=== PATIENT | male | born 1935 | race Caucasian/White ===

== ENCOUNTER 2016-05-02 01:21 | Inpatient (IN) | payer OTHER ==
[2016-05-02] VITALS (21 sets, daily range): BP systolic 98–183; BP diastolic 56–142
[~2016-05-02] VITALS: Ht 170.2 cm; Wt 89.8 kg
[~2016-05-02 01:21] MED LIST: ASPIRIN EC325 MG PO; ATORVASTATIN CA40 MG PO; DITROPAN5 MG PO; ENALAPRILA IV; FUROSEMIDE40 MG PO; LISINOPRIL10 MG PO; LISINOPRIL20 MG PO; LOPRESSOR25 MG PO; MYSOLINE50 MG PO; NEXIUM40 MG PO; NUEDEXTA 20-101 EACH PO; OXYBUTYNIN CHLO10 MG PO; PROTONIX40 MG PO; TYLENOL REGULA325 MG PO
[2016-05-02 02:00] LABS: HEMATOCRIT 30.7 % (38.0-50.0); MCH 27.1 PG (29.0-34.0); MCHC 33.6 G/DL (30.0-36.0); MCV 80.8 FL (86-99); MEAN PLAT.VOLUME 9.9 uM^3 (9.0-12.4); PLATELET COUNT 302 K/uL (156-360); RBC DIS.WIDTH-CV 15.2 % (11.8-14.6); RBC DIS.WIDTH-SD 42.9 % (39-53); WHITE BLOOD COUNT 16.1 K/uL (4.1-10.2)
[2016-05-02 02:03] LABS: BASE EXCESS 3.4 mEq/L (-3 to +3); BICARBONATE 26.7 mEq/L (22-26); CARBOXY HGB 1.9 % (0-5); METHEMOGLOBIN 1.2 % (0-1.5); PCO2 35 mm Hg (35-45); PO2 59 mm Hg (80-100); pH 7.49 (7.35-7.45)
[2016-05-02 02:04] LABS: COMMENTS - BLOOD GASES C+A+; DEVICE NEB TX; O2 FLOW 7 L/MIN; SITE RR; TOTAL RESP RATE 25 resp/min
[2016-05-02 02:11] LABS: CHLORIDE 99 mEq/L (99-109); POTASSIUM 3.5 mEq/L (3.7-5.4); SODIUM 135 mEq/L (136-147)
[2016-05-02 02:13] LABS: GLUCOSE 179 mg/dL (70-99)
[2016-05-02 02:14] LABS: ANION GAP 15 MEQ/L (2-14)
[2016-05-02 02:17] LABS: GFR ESTIMATE (CALCULATED) > 59 mL/min/
[2016-05-02 02:18] LABS: UREA NITROGEN (BUN) 31 mg/dL (9-23)
[2016-05-02 02:19] LABS: INFLUENZA A VIRAL ANTIGEN NEGATIVE; INFLUENZA B VIRAL ANTIGEN NEGATIVE
[2016-05-02 02:21] LABS: TROP-I INTERPRETATION POSITIVE
[2016-05-02 02:22] LABS: TROPONIN-I 1.89 ng/mL (0.0-0.30)
[2016-05-02 02:47] LABS: INTER. NORMALIZED RATIO 1.2; PROTHROMBIN TIME 12.7 (9.2-11.2); PTT 29.6 (25-32)
[2016-05-02 07:50] LABS: METH RESISTANT S AUREUS PCR NEGATIVE (NEGATIVE); PROBE CHECK PASS; SPECIMEN PROCESSING CONTROL PASS
[2016-05-02 11:16] LABS: TROP-I INTERPRETATION POSITIVE
[2016-05-02 11:42] LABS: CK-MB 5.8 ng/mL (0.0-4.9)
[2016-05-02 11:57] LABS: CREATINE KINASE 135 IU/L (1-294); TOTAL CK 135 IU/L (1-294)
[2016-05-02 13:42] LABS: MAGNESIUM 2.2 mg/dl (1.3-2.7)
[2016-05-02 21:21] LABS: TROP-I INTERPRETATION POSITIVE
[2016-05-02 21:25] LABS: TROPONIN-I 2.38 ng/mL (0.0-0.30)
[2016-05-03] VITALS (12 sets, daily range): BP systolic 131–176; BP diastolic 69–118
[2016-05-03 05:41] LABS: ANION GAP 10 MEQ/L (2-14); CHLORIDE 99 MEQ/L (99-109); GFR ESTIMATE (CALCULATED) > 59 mL/min/; MAGNESIUM 2.1 mg/dl (1.3-2.7); POTASSIUM 3.4 MEQ/L (3.7-5.4); SAMPLE HEMOLYSIS CHECK 0; SAMPLE ICTERIC CHECK 0; SAMPLE LIPEMIA CHECK 0; SODIUM 136 MEQ/L (136-147); UREA NITROGEN (BUN) 19 mg/dL (9-23)
[2016-05-03 05:42] LABS: GLUCOSE 112 mg/dL (70-99)
[2016-05-03 10:30] LABS: C DIFF TOXIN NEGATIVE (NEGATIVE)
[2016-05-03 10:49] LABS: PROBE CHECK PASS; SPECIMEN PROCESSING CONTROL PASS
[2016-05-03 11:08] LABS: CREATINE KINASE 125 IU/L (1-294); TOTAL CK 125 IU/L (1-294)
[2016-05-03 11:15] LABS: CK-MB 1.9 ng/mL (0.0-4.9)
[2016-05-03 11:17] LABS: TROP-I INTERPRETATION POSITIVE
[2016-05-03 11:22] LABS: TROPONIN-I 1.71 ng/mL (0.0-0.30)
== END 2016-05-03 15:20 | disposition short-term general hospital (02) | DRG 270 ==
LOC: EME → EDBD 01:21 → EME 01:21 → EDOF 04:23 → 4WEST 04:23
PROVIDERS: Emergency Medicine; Internal Medicine Critical Care Medicine; Surgery
PROC: 5A09457 Assistance with Respiratory Ventilation, 24-96 Consecutive Hours, Continuous Positive Airway Pressure (ICD-10-PCS; 2016-05-02)
PROC: 5A02210 Assistance with Cardiac Output using Balloon Pump, Continuous (ICD-10-PCS; principal; 2016-05-03)
DX: I21.4 Non-ST elevation (NSTEMI) myocardial infarction (principal); J96.01 Acute respiratory failure with hypoxia; I11.0 Hypertensive heart disease with heart failure; I50.9 Heart failure, unspecified; I25.10 Atherosclerotic heart disease of native coronary artery without angina pectoris; I34.0 Nonrheumatic mitral (valve) insufficiency; E87.6 Hypokalemia; E87.1 Hypo-osmolality and hyponatremia; Z91.19 Patient's noncompliance with other medical treatment and regimen; R19.7 Diarrhea, unspecified; D64.9 Anemia, unspecified; D69.6 Thrombocytopenia, unspecified; K21.9 Gastro-esophageal reflux disease without esophagitis; E11.65 Type 2 diabetes mellitus with hyperglycemia; E78.00 Pure hypercholesterolemia, unspecified; F32.9 Major depressive disorder, single episode, unspecified; E78.5 Hyperlipidemia, unspecified; I25.2 Old myocardial infarction; Z86.73 Personal history of transient ischemic attack (TIA), and cerebral infarction without residual deficits; Z87.891 Personal history of nicotine dependence
CPT/HCPCS: 36600; 71010; 80048; 82550; 82550 91; 82553; 82803; 83605; 83735; 83874 90; 83880; 84100; 84484; 85027; 85610; 85730; 87040; 87493; 87502; 87641; 93005; 93306; 94002; 94003; 94640; 94640 76; 94799; 99281; 99285; C1769; C1894; J0456; J0692; J1940; J7050; J7644

== ENCOUNTER 2016-12-11 00:08 | Observation (INO) | payer OTHER ==
[~2016-12-11] VITALS: Ht 170.2 cm; Wt 84.6 kg
[2016-12-11 00:34] LABS: HEMATOCRIT 33.2 % (38.0-50.0); MCH 26.6 PG (29.0-34.0); MCHC 32.2 G/DL (30.0-36.0); MCV 82.6 FL (86-99); MEAN PLAT.VOLUME 10.1 uM^3 (9.0-12.4); PLATELET COUNT 306 K/uL (156-360); RBC DIS.WIDTH-CV 15.1 % (11.8-14.6); RBC DIS.WIDTH-SD 45.2 % (39-53); RED BLOOD COUNT 4.02 M/uL (4.00-5.50); WHITE BLOOD COUNT 10.6 K/uL (4.1-10.2)
[2016-12-11 00:43] LABS: CHLORIDE 107 mEq/L (99-109); POTASSIUM 3.7 mEq/L (3.7-5.4); SODIUM 142 mEq/L (136-147)
[2016-12-11 00:45] LABS: GLUCOSE 162 mg/dL (70-99)
[2016-12-11 00:46] LABS: ANION GAP 11 MEQ/L (2-14)
[2016-12-11 00:47] LABS: CARBON DIOXIDE (BICARBONATE) 26.8 MEQ/L (20-31)
[2016-12-11 00:49] LABS: GFR ESTIMATE (CALCULATED) > 59 mL/min/
[2016-12-11 00:50] LABS: UREA NITROGEN (BUN) 19 mg/dL (9-23)
[2016-12-11 00:57] LABS: TROP-I INTERPRETATION NEGATIVE; TROPONIN-I 0.08 ng/mL (0.0-0.30)
[2016-12-11] MEDS ORDERED: PROTONIX40 MG PO (01:32)
[2016-12-11] MEDS ORDERED: LISINOPRIL10 MG PO (01:32)
[2016-12-11] MEDS ORDERED: ASPIR 8181 M1 PO (01:32)
[2016-12-11] MEDS ORDERED: PLAVIX75 MG PO (01:33)
[2016-12-11] MEDS ORDERED: TOPROL XL50 MG PO (01:33)
[2016-12-11] MEDS ORDERED: FUROSEMIDE40 MG PO (01:33)
[2016-12-11] MEDS ORDERED: CRESTOR40 MG PO (01:33)
[2016-12-11 07:56] LABS: TROP-I INTERPRETATION NEGATIVE; TROPONIN-I 0.25 ng/mL (0.0-0.30)
[2016-12-11 12:50] VITALS: BP 148/90
[2016-12-11 13:41] LABS: TROP-I INTERPRETATION NEGATIVE; TROPONIN-I 0.26 ng/mL (0.0-0.30)
[2016-12-11 14:50] VITALS: BP 148/90
[2016-12-11 15:39] LABS: ADD MIUA? NO; BILIRUBIN NEGATIVE; BLOOD NEGATIVE; COLOR STRAW ((YELLOW)); GLUCOSE (STRIP) NEGATIVE; KETONES NEGATIVE; LEUKOCYTES NEGATIVE; NITRITE NEGATIVE; PROTEIN (STRIP) NEGATIVE; SPECIFIC GRAVITY 1.008 (1.000-1.030); UCUL ADDED? NO; UROBILINOGEN 0.2 MG/DL (0.2-1.0)
[2016-12-11 17:37] VITALS: BP 143/86
[2016-12-11 19:00] VITALS: BP 144/63
[2016-12-12 00:15] VITALS: BP 111/56
[2016-12-12 04:20] VITALS: BP 174/84
[2016-12-12 08:15] VITALS: BP 168/86
[2016-12-12 12:29] VITALS: BP 144/90
[2016-12-12] MEDS ORDERED: LISINOPRIL20 MG PO (12:51)
== END 2016-12-12 14:22 | disposition home or self-care (01) ==
LOC: EME → EDBD 00:08 → EDOF 03:41 → 4EAST 03:41 → ENRESERV 03:44 → CANRESERV 06:38 → ENRESERV 07:51 → 4EAST 12:07 → ENPENDDIS 12-12 → 4EAST 12-12 12:49
PROVIDERS: Emergency Medicine; Hospitalist; Internal Medicine
DX: I11.0 Hypertensive heart disease with heart failure (principal); I50.23 Acute on chronic systolic (congestive) heart failure; D50.9 Iron deficiency anemia, unspecified; I25.10 Atherosclerotic heart disease of native coronary artery without angina pectoris; Z86.73 Personal history of transient ischemic attack (TIA), and cerebral infarction without residual deficits; Z95.1 Presence of aortocoronary bypass graft; I70.0 Atherosclerosis of aorta; I34.0 Nonrheumatic mitral (valve) insufficiency; E78.5 Hyperlipidemia, unspecified; Z79.82 Long term (current) use of aspirin; R09.89 Other specified symptoms and signs involving the circulatory and respiratory systems; Z87.891 Personal history of nicotine dependence; I35.0 Nonrheumatic aortic (valve) stenosis; Z91.19 Patient's noncompliance with other medical treatment and regimen; Z91.14 Patient's other noncompliance with medication regimen
CPT/HCPCS: 71010; 80048; 80053; 81003; 82803; 83605; 83880; 84484; 85025; 85027; 87040; 93005; 94002; 94799; 99202; 99281; 99285; G0378; J1644; J1940

== ENCOUNTER 2017-03-24 22:32 | Inpatient (IN) | payer OTHER ==
[~2017-03-24] VITALS: Ht 170.2 cm; Wt 98.2 kg
[~2017-03-24 22:32] MED LIST changes: +ASPIR 8181 M1 PO; +CRESTOR40 MG PO; +PLAVIX75 MG PO; +TOPROL XL50 MG PO
[2017-03-24 23:11] LABS: BASOPHIL COUNT 0.1 K/uL (0-0.1); EOSINOPHIL (%) 0.5 % (0-5); EOSINOPHIL COUNT 0.1 K/uL (0-0.3); HEMATOCRIT 37.3 % (38.0-50.0); IMMATURE GRANULOCYTE (%) 0.2 % (0.0-0.7); INSTRUMENT ABS NEUTROPHIL CT 7.8 K/uL; LYMPHOCYTE COUNT 0.9 K/uL (1.0-2.8); MCH 26.9 PG (29.0-34.0); MCHC 32.4 G/DL (30.0-36.0); MCV 83.1 FL (86-99); MEAN PLAT.VOLUME 10.3 uM^3 (9.0-12.4); MONOCYTE COUNT 0.7 K/uL (0-0.8); NEUTROPHIL (%) 82.6 % (45-76); NEUTROPHIL COUNT 7.8 K/uL (1.8-6.4); PLATELET COUNT 230 K/uL (156-360); RBC DIS.WIDTH-CV 15.7 % (11.8-14.6); RBC DIS.WIDTH-SD 47.5 % (39-53); RED BLOOD COUNT 4.49 M/uL (4.00-5.50); WHITE BLOOD COUNT 9.5 K/uL (4.1-10.2)
[2017-03-24 23:17] LABS: INTER. NORMALIZED RATIO 1.2; PROTHROMBIN TIME 13.1 SEC (10.2-12.9)
[2017-03-24 23:19] LABS: CHLORIDE 102 mEq/L (99-109); PTT 32.3 SEC (25-37)
[2017-03-24 23:20] LABS: POTASSIUM 4.3 mEq/L (3.7-5.4); SODIUM 137 mEq/L (136-147)
[2017-03-24 23:21] LABS: GLUCOSE 118 mg/dL (70-99)
[2017-03-24 23:23] LABS: ANION GAP 13 MEQ/L (2-14)
[2017-03-24 23:25] LABS: GFR ESTIMATE (CALCULATED) 48 mL/min/
[2017-03-24 23:26] LABS: UREA NITROGEN (BUN) 30 mg/dL (9-23)
[2017-03-24 23:31] LABS: TROP-I INTERPRETATION NEGATIVE; TROPONIN-I 0.28 ng/mL (0.0-0.30)
[2017-03-24 23:59] LABS: BASE EXCESS 0.2 mEq/L (-3 to +3); BICARBONATE 22.9 mEq/L (22-26); CARBOXY HGB 1.8 % (0-5); METHEMOGLOBIN 0.9 % (0-1.5); PCO2 30 mm Hg (35-45); PO2 70 mm Hg (80-100); pH 7.49 (7.35-7.45)
[2017-03-25] LABS: COMMENTS - BLOOD GASES C+; DEVICE NC; O2 FLOW 6 L/MIN; SITE RR
[2017-03-25 00:23] LABS: ADD MIUA? NO; BILIRUBIN NEGATIVE; BLOOD NEGATIVE; COLOR YELLOW ((YELLOW)); GLUCOSE (STRIP) NEGATIVE; KETONES NEGATIVE; LEUKOCYTES NEGATIVE; NITRITE NEGATIVE; PROTEIN (STRIP) NEGATIVE; SPECIFIC GRAVITY 1.015 (1.000-1.030); UCUL ADDED? NO; UROBILINOGEN 0.2 MG/DL (0.2-1.0)
[2017-03-25 07:41] LABS: TROP-I INTERPRETATION INDETERMINATE
[2017-03-25 08:06] VITALS: BP 152/94
[2017-03-25 11:10] LABS: BASE EXCESS 2.8 mEq/L (-3 to +3); BICARBONATE 25.3 mEq/L (22-26); CARBOXY HGB 1.8 % (0-5); METHEMOGLOBIN 1.5 % (0-1.5); PCO2 31 mm Hg (35-45); PO2 57 mm Hg (80-100); pH 7.52 (7.35-7.45)
[2017-03-25 11:11] LABS: COMMENTS - BLOOD GASES Y; DEVICE NC; O2 FLOW 4 L/MIN; SITE Y
[2017-03-25 13:16] LABS: TROP-I INTERPRETATION INDETERMINATE; TROPONIN-I 0.45 ng/mL (0.0-0.30)
[2017-03-25] MEDS ORDERED: MULTI VITAMIN1 EACH PO (13:56)
[2017-03-25] MEDS ORDERED: VITAMIN C1000 MG PO (13:56)
[2017-03-25 15:32] VITALS: BP 134/73
[2017-03-25 17:39] LABS: TROP-I INTERPRETATION INDETERMINATE
[2017-03-25 19:38] VITALS: BP 121/64
[2017-03-25 23:12] VITALS: BP 111/63
[2017-03-25 23:56] LABS: TROP-I INTERPRETATION INDETERMINATE; TROPONIN-I 0.36 ng/mL (0.0-0.30)
[2017-03-26 03:17] VITALS: BP 118/64
[2017-03-26 07:40] LABS: EOSINOPHIL (%) 0 % (0-5); HEMATOCRIT 29.1 % (38.0-50.0); IMMATURE GRANULOCYTE (%) 0.4 % (0.0-0.7); INSTRUMENT ABS NEUTROPHIL CT 7.3 K/uL; LYMPHOCYTE COUNT 0.7 K/uL (1.0-2.8); MCH 27.4 PG (29.0-34.0); MCV 82.9 FL (86-99); MEAN PLAT.VOLUME 10.6 uM^3 (9.0-12.4); MONOCYTE (%) 6.1 % (3-12); MONOCYTE COUNT 0.5 K/uL (0-0.8); NEUTROPHIL (%) 85.5 % (45-76); NEUTROPHIL COUNT 7.3 K/uL (1.8-6.4); PLATELET COUNT 165 K/uL (156-360); RBC DIS.WIDTH-CV 15.8 % (11.8-14.6); RBC DIS.WIDTH-SD 47.9 % (39-53); WHITE BLOOD COUNT 8.5 K/uL (4.1-10.2)
[2017-03-26 07:43] LABS: RED BLOOD COUNT 3.51 M/uL (4.00-5.50)
[2017-03-26 08:00] VITALS: BP 121/72
[2017-03-26 08:04] LABS: ANION GAP 10 MEQ/L (2-14); CHLORIDE 103 MEQ/L (99-109); GFR ESTIMATE (CALCULATED) > 59 mL/min/; GLUCOSE 131 mg/dL (70-99); POTASSIUM 3.8 MEQ/L (3.7-5.4); SAMPLE HEMOLYSIS CHECK 0; SAMPLE ICTERIC CHECK 0; SAMPLE LIPEMIA CHECK 0; SODIUM 138 MEQ/L (136-147); UREA NITROGEN (BUN) 33 mg/dL (9-23)
[2017-03-26 12:00] VITALS: BP 113/67
[2017-03-26 16:07] VITALS: BP 112/61
[2017-03-26 19:30] VITALS: BP 126/67
[2017-03-26 23:57] VITALS: BP 128/65
[2017-03-27 04:06] VITALS: BP 125/69
[2017-03-27 08:00] VITALS: BP 154/76
[2017-03-27 09:02] LABS: HEMATOCRIT 29.5 % (38.0-50.0); MCH 26.2 PG (29.0-34.0); MCHC 32.2 G/DL (30.0-36.0); MCV 81.3 FL (86-99); MEAN PLAT.VOLUME 10.5 uM^3 (9.0-12.4); PLATELET COUNT 205 K/uL (156-360); RBC DIS.WIDTH-CV 15.4 % (11.8-14.6); RBC DIS.WIDTH-SD 45.8 % (39-53); RED BLOOD COUNT 3.63 M/uL (4.00-5.50); WHITE BLOOD COUNT 12.4 K/uL (4.1-10.2)
[2017-03-27] MEDS ORDERED: PREDNISONE20 MG PO (09:56)
[2017-03-27] MEDS ORDERED: CEFTIN500 MG PO (09:57)
[2017-03-28] MEDS ORDERED: METOPROLOL SUCC25 MG PO (16:16)
[2017-03-28] MEDS ORDERED: CLOPIDOGREL75 MG PO (16:19)
[2017-03-28] MEDS ORDERED: ROSUVASTATIN CA40 MG PO (16:20)
[2017-03-28] MEDS ORDERED: PRIMIDONE50 MG PO (16:21)
== END 2017-03-27 14:11 | disposition home health service (06) | DRG 291 ==
LOC: EME → EDBD 22:32 → EME 22:32 → 5SOUTH 03-25 05:48 → EDOF 03-25 05:48 → ENRESERV 03-25 05:49 → 5SOUTH 03-25 07:53 → ENPENDDIS 03-27 10:12 → 5SOUTH 03-27 14:11
PROVIDERS: Emergency Medicine; Hospitalist; Internal Medicine; Nurse Practitioner Adult Health
DX: I13.0 Hypertensive heart and chronic kidney disease with heart failure and stage 1 through stage 4 chronic kidney disease, or unspecified chronic kidney disease (principal); I50.23 Acute on chronic systolic (congestive) heart failure; J18.9 Pneumonia, unspecified organism; J81.0 Acute pulmonary edema; J96.01 Acute respiratory failure with hypoxia; N17.9 Acute kidney failure, unspecified; I16.1 Hypertensive emergency; I67.4 Hypertensive encephalopathy; J44.0 Chronic obstructive pulmonary disease with (acute) lower respiratory infection; I25.10 Atherosclerotic heart disease of native coronary artery without angina pectoris; I35.0 Nonrheumatic aortic (valve) stenosis; I42.9 Cardiomyopathy, unspecified; E78.5 Hyperlipidemia, unspecified; E86.0 Dehydration; I65.23 Occlusion and stenosis of bilateral carotid arteries; N18.9 Chronic kidney disease, unspecified; N32.81 Overactive bladder; R32 Unspecified urinary incontinence; R33.9 Retention of urine, unspecified; R74.8 Abnormal levels of other serum enzymes; Z95.1 Presence of aortocoronary bypass graft; Z91.19 Patient's noncompliance with other medical treatment and regimen; Z79.82 Long term (current) use of aspirin; Z86.73 Personal history of transient ischemic attack (TIA), and cerebral infarction without residual deficits; Z87.891 Personal history of nicotine dependence; Z91.14 Patient's other noncompliance with medication regimen
CPT/HCPCS: 36600; 70450; 71010; 71250; 78582; 80048; 81003; 82803; 83605; 83880; 84484; 85025; 85027; 85379; 85610; 85730; 87040; 87070; 87205; 93005; 93880; 94640; 94640 76; 94760; 94799; 99202; 99281; 99285; A9539; A9540; J0456; J0696; J1644; J1650; J1940; J7030; J7512

== ENCOUNTER 2017-03-28 11:07 | Inpatient (IN) | payer OTHER ==
[~2017-03-28] VITALS: Ht 172.7 cm; Wt 83.5 kg
[~2017-03-28 11:07] MED LIST changes: +CEFTIN500 MG PO; +MULTI VITAMIN1 EACH PO; +PREDNISONE20 MG PO; +VITAMIN C1000 MG PO
[2017-03-28 13:07] LABS: EOSINOPHIL (%) 0 % (0-5); IMMATURE GRANULOCYTE (%) 0.3 % (0.0-0.7); INSTRUMENT ABS NEUTROPHIL CT 8.6 K/uL; LYMPHOCYTE COUNT 0.9 K/uL (1.0-2.8); MCV 81.7 FL (86-99); MEAN PLAT.VOLUME 10.7 uM^3 (9.0-12.4); MONOCYTE COUNT 0.7 K/uL (0-0.8); NEUTROPHIL COUNT 8.6 K/uL (1.8-6.4); PLATELET COUNT 218 K/uL (156-360); RBC DIS.WIDTH-CV 15.4 % (11.8-14.6); RED BLOOD COUNT 3.67 M/uL (4.00-5.50); WHITE BLOOD COUNT 10.2 K/uL (4.1-10.2)
[2017-03-28 13:20] LABS: ADD MIUA? YES; BILIRUBIN NEGATIVE; BLOOD LARGE; COLOR YELLOW ((YELLOW)); GLUCOSE (STRIP) NEGATIVE; KETONES NEGATIVE; LEUKOCYTES NEGATIVE; NITRITE NEGATIVE; PROTEIN (STRIP) 100; SPECIFIC GRAVITY 1.013 (1.000-1.030); UROBILINOGEN 0.2 MG/DL (0.2-1.0)
[2017-03-28 13:22] LABS: CHLORIDE 100 mEq/L (99-109); POTASSIUM 3.2 mEq/L (3.7-5.4); SODIUM 139 mEq/L (136-147)
[2017-03-28 13:24] LABS: GLUCOSE 107 mg/dL (70-99)
[2017-03-28 13:26] LABS: ANION GAP 15 MEQ/L (2-14)
[2017-03-28 13:28] LABS: GFR ESTIMATE (CALCULATED) > 59 mL/min/
[2017-03-28 13:29] LABS: TROP-I INTERPRETATION INDETERMINATE; TROPONIN-I 0.33 ng/mL (0.0-0.30); UREA NITROGEN (BUN) 28 mg/dL (9-23)
[2017-03-28 13:40] LABS: AMORPHOUS URATES CRYSTALS 1+; BACTERIA 1+ /HPF; CASTS PRESENT /LPF; CRYSTALS PRESENT; EPITHELIAL CELLS 1+ /HPF; HYALINE CASTS 0-5 /LPF; MUCUS NONE SEEN /LPF; WHITE BLOOD CELLS 0-5 /HPF (0-5)
[2017-03-28 15:24] LABS: MAGNESIUM 2.2 mg/dL (1.3-2.7)
[2017-03-28] MEDS ORDERED: METOPROLOL SUCC25 MG PO (16:16)
[2017-03-28] MEDS ORDERED: CLOPIDOGREL75 MG PO (16:19)
[2017-03-28] MEDS ORDERED: ROSUVASTATIN CA40 MG PO (16:20)
[2017-03-28] MEDS ORDERED: PRIMIDONE50 MG PO (16:21)
[2017-03-28 16:35] LABS: FERRITIN 661 NG/ML (22-322)
[2017-03-28 18:11] LABS: IRON 10 MCG/DL (35-150)
[2017-03-28 19:45] VITALS: BP 142/77
[2017-03-28 23:00] VITALS: BP 127/57
[2017-03-29 04:00] VITALS: BP 134/65
[2017-03-29 05:25] LABS: MCH 26.5 PG (29.0-34.0); MCHC 32.8 G/DL (30.0-36.0); MEAN PLAT.VOLUME 10.8 uM^3 (9.0-12.4); PLATELET COUNT 204 K/uL (156-360); RBC DIS.WIDTH-CV 15.2 % (11.8-14.6); RBC DIS.WIDTH-SD 45.2 % (39-53); RED BLOOD COUNT 3.58 M/uL (4.00-5.50); WHITE BLOOD COUNT 6.9 K/uL (4.1-10.2)
[2017-03-29 05:52] LABS: ANION GAP 11 MEQ/L (2-14); CHLORIDE 99 MEQ/L (99-109); GFR ESTIMATE (CALCULATED) > 59 mL/min/; GLUCOSE 101 mg/dL (70-99); POTASSIUM 3.1 MEQ/L (3.7-5.4); SAMPLE HEMOLYSIS CHECK 0; SAMPLE ICTERIC CHECK 0; SAMPLE LIPEMIA CHECK 0; SODIUM 138 MEQ/L (136-147); UREA NITROGEN (BUN) 27 mg/dL (9-23)
[2017-03-29 07:08] VITALS: BP 137/68
[2017-03-29 11:26] VITALS: BP 140/77
[2017-03-29 15:12] VITALS: BP 109/57
[2017-03-29 18:55] LABS: TROP-I INTERPRETATION NEGATIVE; TROPONIN-I 0.14 ng/mL (0.0-0.30)
[2017-03-29 19:00] VITALS: BP 131/63
[2017-03-29 22:30] VITALS: BP 140/72
[2017-03-30 03:30] VITALS: BP 132/73
[2017-03-30 06:44] LABS: ANION GAP 11 MEQ/L (2-14); CHLORIDE 102 MEQ/L (99-109); GFR ESTIMATE (CALCULATED) > 59 mL/min/; GLUCOSE 109 mg/dL (70-99); SAMPLE HEMOLYSIS CHECK 0; SAMPLE ICTERIC CHECK 0; SAMPLE LIPEMIA CHECK 0; SODIUM 138 MEQ/L (136-147); UREA NITROGEN (BUN) 28 mg/dL (9-23)
[2017-03-30 06:59] LABS: POTASSIUM 3.9 MEQ/L (3.7-5.4)
[2017-03-30 09:00] VITALS: BP 147/80
[2017-03-30 12:00] VITALS: BP 111/56
[2017-03-30 19:00] VITALS: BP 155/79
[2017-03-30 22:45] VITALS: BP 135/72
[2017-03-31 03:00] VITALS: BP 150/68
[2017-03-31 09:00] VITALS: BP 134/90
== END 2017-03-31 15:10 | disposition home or self-care (01) | DRG 291 ==
LOC: EME 11:07 → 4EAST 14:59 → EDOF 14:59 → ENRESERV 15:01 → 4EAST 19:32
PROVIDERS: Emergency Medicine; Hospitalist; Nurse Practitioner Adult Health
DX: I50.23 Acute on chronic systolic (congestive) heart failure (principal); J18.9 Pneumonia, unspecified organism; J96.01 Acute respiratory failure with hypoxia; F43.22 Adjustment disorder with anxiety; E87.6 Hypokalemia; I11.0 Hypertensive heart disease with heart failure; D50.9 Iron deficiency anemia, unspecified; R33.9 Retention of urine, unspecified; E78.5 Hyperlipidemia, unspecified; I25.10 Atherosclerotic heart disease of native coronary artery without angina pectoris; I35.0 Nonrheumatic aortic (valve) stenosis; I16.0 Hypertensive urgency; Z87.891 Personal history of nicotine dependence; Z86.73 Personal history of transient ischemic attack (TIA), and cerebral infarction without residual deficits; F32.9 Major depressive disorder, single episode, unspecified; Z95.1 Presence of aortocoronary bypass graft; Z87.01 Personal history of pneumonia (recurrent); Z68.28 Body mass index [BMI] 28.0-28.9, adult; N32.81 Overactive bladder; Z79.899 Other long term (current) drug therapy
CPT/HCPCS: 71010; 80048; 81003; 82607; 82728; 82746; 83540; 83735; 83880; 84466; 84484; 85025; 85027; 87502; 94640; 94640 76; 94760; 94799; 99202; 99281; 99285; G8987 GO CJ; G8988 CI; J1644; J1940; J3480; J7512

== ENCOUNTER 2017-10-03 11:10 | Emergency (ER) | payer OTHER ==
[~2017-10-03] VITALS: Ht 170.2 cm; Wt 85.9 kg
[~2017-10-03 11:10] MED LIST changes: +CLOPIDOGREL75 MG PO; +METOPROLOL SUCC25 MG PO; +PRIMIDONE50 MG PO; +ROSUVASTATIN CA40 MG PO
[2017-10-03 11:51] LABS: HEMATOCRIT 33.6 % (38.0-50.0); HEMOGLOBIN 11.1 G/DL (12.5-16.6); MCH 26.9 PG (29.0-34.0); MCV 81.4 FL (86-99); PLATELET COUNT 292 K/uL (156-360); RBC DIS.WIDTH-CV 16.6 % (11.8-14.6); RBC DIS.WIDTH-SD 46.8 % (39-53); RED BLOOD COUNT 4.13 M/uL (4.00-5.50); WHITE BLOOD COUNT 8.8 K/uL (4.1-10.2)
[2017-10-03 12:02] LABS: ALBUMIN 3.7 g/dL (3.2-4.8); CHLORIDE 105 mEq/L (99-109); SODIUM 138 mEq/L (136-147)
[2017-10-03 12:05] LABS: GLUCOSE 144 mg/dL (70-99); TOTAL PROTEIN 7.3 g/dL (6.4-8.3)
[2017-10-03 12:07] LABS: TOTAL BILIRUBIN 1.4 mg/dL (0.0-1.0)
[2017-10-03 12:08] LABS: ALKALINE PHOSPHATASE 143 IU/L (3-129); CREATININE 1.5 mg/dL (0.6-1.3); GFR ESTIMATE (CALCULATED) 48 mL/min/ (58.99-99999)
[2017-10-03 12:09] LABS: UREA NITROGEN (BUN) 29 mg/dL (9-23)
[2017-10-03 12:10] LABS: AST (GOT) 188 IU/L (2-34)
[2017-10-03 12:11] LABS: ALT (GPT) 196 IU/L (3-49)
[2017-10-03 12:13] LABS: TROP-I INTERPRETATION NEGATIVE; TROPONIN-I 0.05 ng/mL (0.0-0.30)
[2017-10-03 13:15] LABS: APPEARANCE SL.HAZY ((CLEAR)); BILIRUBIN NEGATIVE; BLOOD NEGATIVE; COLOR AMBER ((YELLOW)); GLUCOSE (STRIP) NEGATIVE; KETONES NEGATIVE; LEUKOCYTES NEGATIVE; NITRITE NEGATIVE; PROTEIN (STRIP) 30
[2017-10-03 13:25] LABS: LIPASE 30 U/L (1.0-51.0)
[2017-10-03 13:26] LABS: BACTERIA NONE SEEN /HPF; CALCIUM OXALATE CRYSTALS 2+ /HPF; EPITHELIAL CELLS RARE /HPF; HYALINE CASTS 0-5 /LPF; MUCUS TRACE /LPF; WHITE BLOOD CELLS 0-5 /HPF (0-5)
[2017-10-03] MEDS ORDERED: FUROSEMIDE40 MG PO (15:20)
[2017-10-03] MEDS ORDERED: DITROPAN XL10 MG PO (15:20)
[2017-10-03 16:22] VITALS: BP 140/88
== END 2017-10-03 16:23 | disposition home or self-care (01) ==
LOC: EME 11:10
PROVIDERS: Emergency Medicine
DX: I11.0 Hypertensive heart disease with heart failure (principal); I50.9 Heart failure, unspecified; N32.81 Overactive bladder; R74.0 Nonspecific elevation of levels of transaminase and lactic acid dehydrogenase [LDH]; R74.8 Abnormal levels of other serum enzymes; E78.5 Hyperlipidemia, unspecified; F32.9 Major depressive disorder, single episode, unspecified; I25.2 Old myocardial infarction; Z86.73 Personal history of transient ischemic attack (TIA), and cerebral infarction without residual deficits; Z87.891 Personal history of nicotine dependence; I25.10 Atherosclerotic heart disease of native coronary artery without angina pectoris
CPT/HCPCS: 71046; 76705; 80053; 81003; 83690; 83880; 84484; 85027; 93005; 99281; 99285

== ENCOUNTER 2017-10-16 14:01 | Inpatient (IN) | payer OTHER ==
[~2017-10-16] VITALS: Ht 170.2 cm; Wt 83.0 kg
[~2017-10-16 14:01] MED LIST changes: +DITROPAN XL10 MG PO
[2017-10-16 17:00] LABS: BASOPHIL (%) 0.4 % (0-1); EOSINOPHIL (%) 1.3 % (0-5); EOSINOPHIL COUNT 0.1 K/uL (0-0.3); HEMATOCRIT 35.5 % (38.0-50.0); HEMOGLOBIN 11.4 G/DL (12.5-16.6); IMMATURE GRANULOCYTE (%) 0.1 % (0.0-0.7); MCH 25.9 PG (29.0-34.0); MCHC 32.1 G/DL (30.0-36.0); MCV 80.5 FL (86-99); MONOCYTE COUNT 0.6 K/uL (0-0.8); NEUTROPHIL (%) 76.2 % (45-76); NEUTROPHIL COUNT 5.3 K/uL (1.8-6.4); PLATELET COUNT 267 K/uL (156-360); RBC DIS.WIDTH-CV 17.1 % (11.8-14.6); RBC DIS.WIDTH-SD 49.1 % (39-53); RED BLOOD COUNT 4.41 M/uL (4.00-5.50)
[2017-10-16 17:01] LABS: INTER. NORMALIZED RATIO 1.5
[2017-10-16 17:03] LABS: CHLORIDE 104 mEq/L (99-109); SODIUM 138 mEq/L (136-147)
[2017-10-16 17:04] LABS: GLUCOSE 132 mg/dL (70-99); PTT 29.1 SEC (25-37)
[2017-10-16 17:08] LABS: CREATININE 1.3 mg/dL (0.6-1.3); GFR ESTIMATE (CALCULATED) 56 mL/min/ (58.99-99999)
[2017-10-16 17:09] LABS: UREA NITROGEN (BUN) 33 mg/dL (9-23)
[2017-10-16 17:16] LABS: TROP-I INTERPRETATION NEGATIVE; TROPONIN-I 0.04 ng/mL (0.0-0.30)
[2017-10-16 17:41] LABS: APPEARANCE CLEAR ((CLEAR)); BILIRUBIN NEGATIVE; BLOOD SMALL; COLOR YELLOW ((YELLOW)); GLUCOSE (STRIP) NEGATIVE; KETONES NEGATIVE; LEUKOCYTES NEGATIVE; NITRITE NEGATIVE; PROTEIN (STRIP) 30; SPECIFIC GRAVITY 1.014 (1.000-1.030); UROBILINOGEN 0.2 MG/DL (0.2-1.0)
[2017-10-16 17:50] LABS: BACTERIA NONE SEEN /HPF; EPITHELIAL CELLS RARE /HPF; MUCUS TRACE /LPF; RED BLOOD CELLS 0-5 /HPF (0-5); UCUL ADDED? NO; WHITE BLOOD CELLS 0-5 /HPF (0-5)
[2017-10-16] MEDS ORDERED: PRINIVIL5 MG PO (20:02)
[2017-10-16] MEDS ORDERED: POTASSIUM-9999 MG PO (20:03)
[2017-10-16 21:41] LABS: SERUM ETHYL ALCOHOL < 10 mg/dL
[2017-10-16 22:53] VITALS: BP 102/63
[2017-10-17 03:53] VITALS: BP 125/77
[2017-10-17 05:35] LABS: TROP-I INTERPRETATION NEGATIVE; TROPONIN-I 0.05 ng/mL (0.0-0.30)
[2017-10-17 05:37] LABS: HDL CHOLESTEROL 27 MG/DL (Desirable>=40); LDL CHOLESTEROL 29 mg/dL (Desirable<100); NON-HDL CHOLESTEROL 40 mg/dL (Desirable<160); TOTAL CHOLESTEROL 67 mg/dL (Desirable<200); TRIGLYCERIDES 57 MG/DL (Normal: <150)
[2017-10-17 08:21] VITALS: BP 148/93
[2017-10-17 08:31] LABS: BENZODIAZEPINES, URINE SCREEN Negative (200 ng/mL)
[2017-10-17 11:36] VITALS: BP 123/64
[2017-10-17 12:33] LABS: HEMOGLOBIN A1c (GLYCOHEMOGLOB) 5.7 % (Below 5.7)
[2017-10-17 16:14] VITALS: BP 115/82
[2017-10-17 20:00] VITALS: BP 134/86
[2017-10-17 23:55] VITALS: BP 131/94
[2017-10-18 03:37] VITALS: BP 147/88
[2017-10-18 08:59] VITALS: BP 138/78
== END 2017-10-18 13:33 | disposition home health service (06) | DRG 68 ==
LOC: EME 14:01 → EDOF 20:54 → 4SOUTH 20:54 → EDOF 20:54 → 4SOUTH 21:04 → ENRESERV 21:22 → 4SOUTH 22:50 → ENPENDDIS 10-18 12:39 → 4SOUTH 10-18 13:33
PROVIDERS: Emergency Medicine; Physician Assistant Medical
DX: I65.23 Occlusion and stenosis of bilateral carotid arteries (principal); I11.0 Hypertensive heart disease with heart failure; I50.22 Chronic systolic (congestive) heart failure; E78.5 Hyperlipidemia, unspecified; F32.9 Major depressive disorder, single episode, unspecified; I08.0 Rheumatic disorders of both mitral and aortic valves; F48.2 Pseudobulbar affect; I25.10 Atherosclerotic heart disease of native coronary artery without angina pectoris; I69.398 Other sequelae of cerebral infarction; R53.1 Weakness; I25.2 Old myocardial infarction; Z79.02 Long term (current) use of antithrombotics/antiplatelets; Z79.82 Long term (current) use of aspirin; Z87.891 Personal history of nicotine dependence; Z95.1 Presence of aortocoronary bypass graft; Z91.14 Patient's other noncompliance with medication regimen; Z95.5 Presence of coronary angioplasty implant and graft
CPT/HCPCS: 70450; 70544; 70549; 70551; 71045; 80048; 80061; 80306 90; 81003; 83036; 84484; 85025; 85610; 85730; 93005; 93880; 99281; 99285; G0378; G0480; J1644

== ENCOUNTER 2017-11-04 15:42 | Emergency (ER) | payer OTHER ==
[~2017-11-04] VITALS: Ht 172.7 cm; Wt 80.3 kg
[~2017-11-04 15:42] MED LIST changes: +POTASSIUM-9999 MG PO; +PRINIVIL5 MG PO
[2017-11-04 17:50] VITALS: BP 136/91
== END 2017-11-04 17:50 | disposition home or self-care (01) ==
LOC: EME 15:42
DX: R04.0 Epistaxis (principal); Z79.02 Long term (current) use of antithrombotics/antiplatelets; Z79.82 Long term (current) use of aspirin; W06.XXXA Fall from bed, initial encounter; I11.0 Hypertensive heart disease with heart failure; I50.9 Heart failure, unspecified; E78.5 Hyperlipidemia, unspecified; I25.2 Old myocardial infarction; Z86.73 Personal history of transient ischemic attack (TIA), and cerebral infarction without residual deficits; Z87.891 Personal history of nicotine dependence
CPT/HCPCS: 99281; 99284

== ENCOUNTER → 2017-11-06 | Outpatient (CLI) | payer OTHER | END | disposition home or self-care (01) | LOC: RAD 09:50 | DX: R13.12 Dysphagia, oropharyngeal phase (principal); Z86.73 Personal history of transient ischemic attack (TIA), and cerebral infarction without residual deficits; Z87.01 Personal history of pneumonia (recurrent) | CPT/HCPCS: 74230; 92611 GN; G8996 GN CJ; G8997 GN CJ; G8998 GN CJ ==